=== PATIENT | female | born 2000 | race Caucasian/White ===

== ENCOUNTER 2024-06-06 09:07 | Outpatient (AMB) | payer MEDICAID, SELFPAY ==
--- NOTE | 2024-06-06 09:28 | OBCLNT_ITS ---
Vital Signs 06/06/24 09:35 Height 1.57 m Height Method Stated Weight 65.544 kg Weight Measurement Method Standing Scale BMI 26.4 BP 133/67 H Blood Pressure Source Automatic Cuff Blood Pressure Location Left Upper Arm Position Sitting Respiration 18 Pulse 91 Pulse Source Monitor Temp 97.2 F Temp Source Oral Pulse Oximetry (%) 98 Oxygen Delivery Method Room Air Allergies/Home Meds Allergies & Medications Allergies No Known Allergies Allergy (Verified 06/06/24 09:28) Medication Reconciliation No Known Home Medications 06/06/24 [History Confirmed 06/06/24] Intake Visit Data Collection New Patient or Established: New Patient (never been to [facility]) Reason for Visit:: OBI Seen by Clinical Staff ONLY (RN/MA): No Roadway Technician Required: No Do You Feel Safe at Home: Yes Authorities Contacted: N/A PCP or OBGYN visit in last 3 months: No Hx Now: Yes Are you currently on any form of Control: No Last menstrual period: 04/05/24 Pain Present Currently: No Pain Scale Used: Kevin-Patel/Numerical Pain scale:: 0 Smoking Status Smoking Status: Never smoker Questionnaires Covid-19 Vaccine Questionnaire Has patient been vacinated for Covid-19 Have you been vacinated for Covid-19: Yes PHQ-9 PHQ-2 Over the last 2 weeks, how often have you been bothered by any of the following problems? 1. Little interest or pleasure in doing things: not at all 2. Feeling down, depressed, or hopeless: not at all Total score: 0 PHQ-9 3. Trouble falling or staying asleep, or sleeping too much: Not at all 4. Feeling tired or having little energy: Not at all 5. Poor appetite or overeating: Not at all 6. Feeling bad about yourself - or that you are a failure or have let yourself or your family down: Not at all 7. Trouble concentrating on things, such as reading the newspaper or watching television: Not at all 8. Moving or speaking so slowly that other people could have noticed? - Or the opposite - being so fidgety or restless that you have been moving around a lot more than usual: not at all 9. Thoughts that you would be better off or of hurting yourself in some way: Not at all Total score: 0 If you checked off any problems, how difficult have these problems made it for you to do your work, take care of things at home, or get along with other people?: not difficult at all Source: Developed by Drs. Olvin Webster, Kim Shore, Kartik Lewis and colleagues, with an educational lisa from [employer]. Depression screen completed yes Social History Living Situation History Marital Status: Lives With: Family Housing: Apartment Tobacco History Smoking Status: Never smoker Second Hand Smoke Exposure: No Alcohol History Alcohol Intake: Former Alcohol Intake Frequency: holidays/special occasions only Domestic Abuse History Do You Feel Safe at Home: Yes Past Medical History Past Medical History Have you ever been diagnosed with any of the following: History of Present Illness HPI Narrative 24-year-old 1 para 0 for OBI. Patient and partner are here today for the visit and both are very excited about the positive . Last. April 05, 2024. This gives due date January 11, 2025. Her menses are every month. Every 21 days. The last 7 days. And patient tracks her menses. Is planned . She has no complaints of discomfort at this time due to the . She is healthy denies any existing medical conditions. Denies social habits. Denies surgeries. No SAB complaints are present. OB Initial Visit OB Flowsheet OB Flowsheet Initial Weight: Not Recorded Date -?-?-?-?-?-?-?-?-?-?-?-?- EGA Weight Edema CTX Effacement BP Fundal ht Pres Dilation Effacement Station Visit Note Alb Glu FHR Mov 06/06/24 -?-?-?-?-?-?-?-?-?-?-?-?- 8w 6d 65.544 kg absent absent 133/67 8 24-year-old 1 para 0 for initial OB. Last period for 10/03/2024. Sure dates. EDC 01/11/2025. Patient denies any existing discomforts due to the at this time. No SAB complaints. Both patient and partner are very happy about the results. Patient denies any existing medical problems. No surgeries. No social habits. Plan for today schedule early OB sono to evaluate viability and dating. Order OB panel including drug screen and GC and chlamydia. Discussed SAB precautions. Discussed diet and weight gain. Regular activity is fine. ER precautions and return in 4 weeks OB check Menstrual History Menstrual reliability: definite Flow: heavy Menstrual regularity: regular Monthly: Yes Age at menarche: 11 On control pills at conception: No OB History : 1 Para: 0 Hx # Pregnancies: 0 Hx Total # of Abortions (Spontaneous & Elective): 0 # of Living Children: 0 Infection History & Risk Evaluation History of STDs: none HIV risk evaluation: low risk Hepatitis B risk evaluation: low risk Patient or partner has history of Genital Herpes: No Varicella/chicken pox status: immunized Genetic Screening & History Genetic Screening/Teratology Counseling - Includes patient, baby's father, or anyone in either family with: 1. Patient's age 35 years or older as of estimated date of delivery: No 2. Thalassemia ([place] Citizen, [place] Islander, Mediterranean, or Background); MCV less than 80: No 3. Neural Tube Defect (Meningomyelocele, Spina Bifida, or Anencephaly): No 4. Congenital Heart Defect: No 5. Down Syndrome: No 6. Carson-Sachs (Ashkenazi Tenriism, Cajun, Icelandic Haitian): No 7. Delbert Disease (Ashkenazi Tenriism): No 8. Familial Dysautonomia (Ashkenazi Tenriism): No 9. Sickle Cell Disease or Trait (): No 10. Hemophilia or other blood disorders: No 11. Muscular Dystrophy: No 12. Cystic Fibrosis: No 13. Armando's Chorea: No 14. Mental Retardation/Autism: No 15. Other inherited genetic or chromosomal disorder: No 16. Maternal Metabolic Disorder (EG,TYPE 1 Diabetes, PKU): No 17. Patient or baby's father had a child with defects not listed above: No 18. Recurrent loss or a stillbirth: No 19. Medications (including supplements, vitamins, herbs or otc drugs)/illicit/recreational drugs/alcohol since last menstrual period: No 20. Any other: No Infection History 1. Live with someone with TB or exposed to TB: No 2. Rash or viral illness since last menstrual period: No 3. Hepatitis B,C: No Other (see comments) Source: [employer] Review of Systems Review of Systems Systems Reviewed: All systems reviewed, normal except as documented Exam General Limitations: no limitations General Appearance: alert, in no apparent distress, comfortable, cooperative, healthy appearing, well developed and well groomed Head Head exam: atraumatic, normocephalic and normal inspection Chest Chest inspection: Present normal inspection and symmetric chest wall rise Resp Respiratory exam: Present normal lung sounds bilaterally Card Cardiovascular exam: Present regular rate, normal rhythm and normal heart sounds Abdominal Abdominal exam: Present soft and normal bowel sounds Psych Psychiatric exam: Present normal affect and normal mood Assessment & Plan Diagnosis / Problem List (1) Encounter for supervision of normal first , first trimester: Status: Acute Plan Discussed SAB precautions. Discussed diet and weight gain. Regular exercise. Continue vitamins. Advised patient to start vitamin D. Ordered OB panel and drug screen today. Schedule ultrasound for viability and dating. 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
[2024-06-06 09:35] VITALS: BP 133/67; PULSE 91; RESP 18; TEMP 36.2; O2SAT 98; BMI 26.4
[2024-06-06 10:26] LABS: Bilirubin,Urine Clinitek Negative (Negative); Blood,Urine Clinitek Negative (Negative); Glucose, Urine Clinitek Negative (Negative); Ketones,Urine Clinitek Negative (Negative); Leukocyte Esterase,Urine Clin Negative (Negative); Nitrite,Urine Clinitek Negative (Negative); Protein,Urine Clinitek Negative (Neg - Trace); Specific Gravity,Urine Clin >= 1.030 (1.001-1.030); Urobilinogen,Urine Clinitek 0.2 mg/dL (0.0-1.0)
== END 2024-06-06 10:11 | disposition home or self-care (01) ==
LOC: HODSOBC 09:07
PROVIDERS: Supervising Provider Advanced Practice Midwife; Visit Provider Advanced Practice Midwife
DX: Z34.01 Encounter for supervision of normal first pregnancy, first trimester (principal); Z3A.08 8 weeks gestation of pregnancy
CPT/HCPCS: 76801; 81001; 99203; G0463

== ENCOUNTER 2024-06-24 12:22 | Emergency (ER) | payer SELFPAY ==
[2024-06-24 12:23] VITALS: BMI 26.9
[2024-06-24 12:36] VITALS: BP 144/88; PULSE 100; RESP 16; TEMP 37.4; O2SAT 99; BMI 26.9
--- NOTE | 2024-06-24 12:38 | XR_ITS ---
Examination: Complete OB ultrasound, less than 14 weeks, transabdominal Date and time of exam: June 24, 2024 1340 hours INDICATIONS: Vaginal bleeding beginning 2 days ago Technique: Obstetrical ultrasound images less than 14 weeks performed via transabdominal imaging Findings: Uterus 8.3 cm Intrauterine gestational sac 1.0 cm corresponds to 5 weeks 5 days gestational age No pole, no cardiac activity Right ovary 2.7 cm arterial flow Left ovary 2.7 cm arterial flow IMPRESSION: Empty intrauterine gestational sac corresponding to 5 weeks 5 days gestational age Recommend short-term follow-up transvaginal pelvic sonography to confirm viability
--- NOTE | 2024-06-24 12:38 | PD.EDVAGBL ---
ED OB Contraction Preg RMI/HPI General Chief complaint: Vaginal Bleeding Stated complaint: VAGINAL BLEEDING X2 DAYS; PT 10WKS OB Time Seen by Provider: 06/24/24 12:25 Source: patient Arrival date/time: 06/24/24 12:22 24-year-old female with no known medical history presents to the emergency room with a chief complaint of vaginal bleeding x 2 days. Patient is currently 10 weeks she is a . Patient denies any dysuria Mode of arrival: ambulatory Limitations: no limitations Related Data Home Medications ?Medication ?Instructions ?Recorded ?Confirmed No Known Home Medications 06/06/24 06/06/24 Allergies Allergy/AdvReac Type Severity Reaction Status Date / Time No Known Allergies Allergy Verified 06/24/24 12:25 Review of Systems Review of Systems Systems Reviewed: All systems reviewed, normal except as documented Constitutional Constitutional: Reports system reviewed and no additional complaints, except as documented, Denies fatigue, Denies fever(s), Denies headache(s) and Denies weakness Eyes Eyes: Reports system reviewed and no additional complaints, except as documented, Denies blurry vision and Denies change in vision ENT Ears, Nose, Mouth, and Throat: Reports system reviewed and no additional complaints, except as documented, Denies otalgia, Denies headache(s), Denies nasal congestion, Denies throat swelling and Denies vertigo Cardiovascular Cardiovascular: Reports system reviewed and no additional complaints, except as documented, Denies chest pain, Denies dyspnea and Denies dyspnea on exertion Respiratory Respiratory: Reports system reviewed and no additional complaints, except as documented, Denies chest congestion, Denies cough, Denies dyspnea, Denies dyspnea on exertion and Denies wheezing Gastrointestinal Gastrointestinal: Reports system reviewed and no additional complaints, except as documented, Denies abdominal pain, Denies cramping, Denies nausea and Denies vomiting Genitourinary Genitourinary: Reports system reviewed and no additional complaints, except as documented and Reports abnormal vaginal bleeding Musculoskeletal Musculoskeletal: Reports system reviewed and no additional complaints, except as documented and Denies back pain Integumentary/Breasts Skin/Breast: Reports system reviewed and no additional complaints, except as documented and Denies wounds Neurologic Neurologic: Reports system reviewed and no additional complaints, except as documented, Denies confusion, Denies headache(s), Denies lack of coordination, Denies vertigo and Denies weakness Psychiatric Psychiatric: Reports system reviewed and no additional complaints, except as documented, Denies anxiety, Denies confusion, Denies depression, Denies paranoia, Denies suicidal ideation and Denies tactile hallucinations Endocrine Endocrine: Reports system reviewed and no additional complaints, except as documented and Denies fatigue Hematologic/Lymphatic Hematologic/Lymphatic: Reports system reviewed and no additional complaints, except as documented and Denies lymphadenopathy Allergic/Immunologic Allergic/Immunologic: Reports system reviewed and no additional complaints, except as documented, Denies throat swelling, Denies urticaria and Denies wheezing Past Medical History Social History SMOKING STATUS: Never smoker SECOND HAND EXPOSURE: No ED Exam General Limitations: Present no limitations General appearance: Present alert and in no apparent distress Head Head exam: Present atraumatic Eye Eye exam: Present normal appearance, PERRL and EOMI ENT ENT exam: Present normal exam, normal oropharynx and mucous membranes moist Neck Neck exam: Present normal inspection, full ROM and trachea midline Chest Chest inspection: Present normal inspection and symmetric chest wall rise Respiratory Respiratory exam: Present normal lung sounds bilaterally Cardiovascular Cardiovascular exam: Present regular rate, normal rhythm and normal heart sounds Abdominal Exam Abdominal exam: Present soft and normal bowel sounds Extremities Exam Extremities exam: Present normal inspection and full ROM Back Exam Back exam: Present normal inspection and full ROM Neurological Exam Neurological exam: Present alert, oriented X3 and CN II-XII intact Psychiatric Psychiatric exam: Present normal affect and normal mood Skin Skin exam: Present warm, dry, intact and normal color Course Quality Measures none Orders Category Date Time Status US OB <= 14 weeks fetus Stat Exams 06/24/24 12:38 Completed ABO/RH Type Stat Lab 06/24/24 12:44 Completed Beta HCG,Quantitative Stat Lab 06/24/24 12:44 Completed CBC Stat Lab 06/24/24 12:44 Completed CMP [Comprehensive Metabolic Panel] Stat Lab 06/24/24 12:44 Completed UA [Urinalysis] Stat Lab 06/24/24 13:19 Completed Vital Signs Vital signs: Vital Signs Temperature 99.3 F 06/24/24 12:36 Pulse Rate 100 06/24/24 12:36 Respiratory Rate 16 06/24/24 12:36 Blood Pressure 144/88 H 06/24/24 12:36 Pulse Oximetry (%) 99 06/24/24 12:36 Oxygen Delivery Method Room Air 06/24/24 12:36 O2 saturation within normal limits Vaginal Bleeding MDM Narrative MDM Narrative: 24-year-old female with no known medical history presents to the emergency room with a chief complaint of vaginal bleeding x 2 days. Patient is currently 10 weeks she is a . Patient denies any dysuria Patient is hemodynamically stable she is not tachypneic not tachycardic. Physical examination shows no abdominal tenderness or pain. The patient only complains of vaginal bleeding. Patient states it started off as vaginal spotting yesterday but today has progressed and the bleeding has increased. H&H were within normal limits. hCG levels were 4568. Ultrasound OB shows an empty intrauterine gestational sac at 5 weeks and 5 days. Patient was educated that a short term transvaginal pelvic follow-up is warranted and patient was educated to return in the next 3 days if she is unable to see her [employer]. Patient was discharged and educated to follow-up with primary care provider in the next 24 to 48 hours and return to the emergency room for any evidence of worsening signs or symptoms Patient data External records reviewed:: [facility] previous records Clinical information provided by:: patient Social determinants that could affect healthcare access:: none Patient has the following chronic illnesses:: No chronic illness How is presenting disease/condition affected by chronic disease/condition?: no chronic disease Evaluation data The following diagnostics were reviewed and interpreted by me:: lab results and radiology exam(s) Lab and/or radiology exams considered but not ordered:: Labs and radiology exams considered and ordered Interpretation Summary: Ultrasound OB-Findings: Uterus 8.3 cm Intrauterine gestational sac 1.0 cm corresponds to 5 weeks 5 days gestational age No pole, no cardiac activity Right ovary 2.7 cm arterial flow Left ovary 2.7 cm arterial flow IMPRESSION: Empty intrauterine gestational sac corresponding to 5 weeks 5 days gestational age Recommend short-term follow-up transvaginal pelvic sonography to confirm viability Medications / Prescriptions Medications or Prescriptions considered but not ordered:: No medication given Medication administrations:: No medication given Consultations Consultation(s) initiated? (list below): No Diagnosis Vaginal Bleeding Differential Diagnosis: threatened , dysfunctional uterine bleeding, incomplete , ectopic without intrauterine , vaginal bleeding and other (Subchorionic hemorrhage) Most likely diagnosis given after review of the tests above:: Vaginal bleeding Admission Indicated Admission indicated?: not indicated Admission Request Was there a request for admission?: No Disposition Plan Disposition Plan: Discharge Discharge Attestation Discharge Attestation: The patient and all family members were given an opportunity to ask questions and understood the discharge instructions. Discharge instructions specifically effects, indications for sooner follow up or return to the emergency department, and the expected course of current diagnosis. Patient condition: Stable Discharge Plan Plan Patient Disposition: HOME (Self Care) Discharge Disposition comment: Stable Prescriptions/Referrals Prescriptions/Med Rec: No Action No Known Home Medications Referrals: No Primary/Family,Physician [Primary Care Provider] - In 1 week Problem List Clinical Impression: Vaginal bleeding Patient/Caregiver Discharge Instructions Education Materials: ED Dysfunctional Uterine Bleeding Additional Instructions: Please follow-up with your [employer] DRIVER in the next 24 to 48 hours. At this time there was an empty gestational sac and no heart tones that were seen in the ultrasound. You will need to return in the next 3 days for further imaging and blood work to confirm viability. At this time your hCG levels are at 4468. We will compare these levels at your next visit. For any evidence of worsening signs or symptoms return to the emergency room immediately Print Language: Wolof Stand Alone Forms: Alena Award Info., Work/School Release, Patient Portal Info Letter JUSTICE/GIANNI Supervising Physician JUSTICE/GIANNI Supervising Physician: Dr Estrella
[2024-06-24 13:01] LABS: Basophils # (Auto) 0.1 Thou/mm3 (0.0-0.2); Basophils % (Auto) 1 % (0-2.5); Eosinophils # (Auto) 0.4 Thou/mm3 (0.0-0.5); Eosinophils % (Auto) 4 % (0-10); Hematocrit 40.2 % (36.0-46.0); Hemoglobin 13.3 g/dL (12.0-16.0); Immature Granulocytes % (Auto) 0 % (0-0); Immature Granulocytes Auto 0.04 Thou/mm3 (0.00-0.00); Lymphocytes # (Auto) 1.8 Thou/mm3 (1.0-4.8); Lymphocytes % (Auto) 17 % (10-50); Mean Corpuscular HGB Conc 33.1 g/dl (31.0-37.0); Mean Corpuscular Hemoglobin 29.5 pg (25.0-35.0); Mean Corpuscular Volume 89 fL (80-100); Monocytes # (Auto) 0.6 Thou/mm3 (0.0-0.8); Monocytes % (Auto) 6 % (0-12); Neutrophils # (Auto) 7.6 Thou/mm3 (1.8-7.7); Neutrophils % (Auto) 72 % (37-80); Nucleated Red Blood Cell % 0 /100 WBC (0); Platelet Count 427 Thou/mm3 (140-440); RDW Standard Deviation 49.4 fL (36.4-46.3); Red Blood Count 4.51 Miln/mm3 (4.00-5.20); White Blood Count 10.6 Thou/mm3 (3.6-11.0)
[2024-06-24 13:17] LABS: Alanine Aminotransferase 15 U/L (10-49); Albumin, Serum 4.9 gm/dL (3.5-5.0); Albumin/Globulin Ratio 1.9 (1.2-2.2); Alkaline Phosphatase 46 U/L (46-116); Anion Gap 10 (7-16); Aspartate Amino Transferase 16 U/L (0-34); BUN/Creatinine Ratio 8 Ratio (12-20); Bilirubin,Total 0.4 mg/dL (0.3-1.2); Blood Urea Nitrogen < 5 mg/dL (9-23); Calcium 9.3 mg/dL (8.3-10.6); Calcium (Corrected) 9.3 mg/dL (8.5-10.1); Carbon Dioxide 24.4 mMol/L (20.0-31.0); Chloride 105 mMol/L (98-107); Creatinine (Component) 0.6 mg/dL (0.6-1.3); Estimated Creatinine Clearance 128.4 mL/min (>60); Globulin 2.6 gm/dL (2.3-3.5); Glucose 122 mg/dL (74-106); Osmolality,Calculated 275 (275-295); Potassium 3.7 mMol/L (3.4-5.1); Sodium 139 mMol/L (136-145); Total Protein 7.5 gm/dL (5.7-8.2); eGFR > 60 See Note
[2024-06-24 13:27] LABS: Collection Type, Urine Clean Catch
[2024-06-24 14:00] LABS: Bilirubin,Urine Negative (Negative); Blood,Urine 3+ (Negative); Clarity,Urine Turbid (Clear/Hazy); Color,Urine Yellow (Lt Yel-Yel); Glucose, Urine Negative (Negative); Ketones,Urine 3+ (Negative); Leukocyte Esterase,Urine Negative (Negative); Nitrite,Urine Negative (Negative); Protein,Urine 1+ (Neg - Trace); RBC,Urine 1799 /hpf (0-3); Specific Gravity,Urine 1.018 (1.001-1.035); Squamous Epithelial Cell,Urine 7 /hpf (0-5); Urobilinogen,Urine Negative mg/dL (0.0-1.0); WBC,Urine 7 /hpf (0-5)
[2024-06-24 14:06] LABS: Beta HCG,Quantitative 4468 mIU/mL (<5.0)
== END 2024-06-24 15:32 | disposition home or self-care (01) ==
PROVIDERS: Nurse Practitioner Family; Emergency Provider Emergency Medicine
DX: O20.9 Hemorrhage in early pregnancy, unspecified (principal); Z3A.01 Less than 8 weeks gestation of pregnancy
CPT/HCPCS: 36415; 76801; 80053; 81001; 84702; 85025; 86900; 86901; 99284

== ENCOUNTER 2024-06-26 09:41 | Outpatient (AMB) | payer SELFPAY ==
[2024-06-26 09:55] VITALS: BP 152/75; PULSE 105; RESP 18; TEMP 36.2; O2SAT 97; BMI 27.0
--- NOTE | 2024-06-26 09:55 | AMB.GYNCLNOT ---
Vital Signs 06/26/24 09:55 Height 1.57 m Height Method Stated Weight 66.678 kg Weight Measurement Method Standing Scale BMI 27.0 BP 152/75 H Blood Pressure Source Automatic Cuff Blood Pressure Location Left Upper Arm Position Sitting Respiration 18 Pulse 105 H Pulse Source Monitor Temp 97.2 F Temp Source Oral Pulse Oximetry (%) 97 Oxygen Delivery Method Room Air Allergies/Home Meds Allergies & Medications Allergies No Known Allergies Allergy (Verified 06/26/24 09:56) Medication Reconciliation No Known Home Medications 06/06/24 [History Confirmed 06/26/24] Intake Visit Data Collection New Patient or Established: Established Patient (seen at [facility] within 3 years) Reason for Visit:: ER FOLLOW UP , PATIENT IS STILL BLEEDING Dust Mixer Required: No Do You Feel Safe at Home: Yes Authorities Contacted: N/A PCP or OBGYN visit in last 3 months: Yes Date of Last PCP or OBGYN visit: 06/24/24 Hx Now: Yes Are you currently on any form of Control: No Pain Present Currently: No Pain Scale Used: Kevin-Patel/Numerical Pain scale:: 0 Smoking Status Smoking Status: Never smoker 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 1. Little interest or pleasure in doing things: not at all 2. Feeling down, depressed, or hopeless: not at all Total score: 0 PHQ-9 3. Trouble falling or staying asleep, or sleeping too much: Not at all 4. Feeling tired or having little energy: Not at all 5. Poor appetite or overeating: Not at all 6. Feeling bad about yourself - or that you are a failure or have let yourself or your family down: Not at all 7. Trouble concentrating on things, such as reading the newspaper or watching television: Not at all 8. Moving or speaking so slowly that other people could have noticed? - Or the opposite - being so fidgety or restless that you have been moving around a lot more than usual: not at all 9. Thoughts that you would be better off or of hurting yourself in some way: Not at all Total score: 0 If you checked off any problems, how difficult have these problems made it for you to do your work, take care of things at home, or get along with other people?: not difficult at all Source: Developed by Drs. Olvin Webster, Kim Shore, Kartik Lewis and colleagues, with an educational lisa from [employer]. Depression screen completed yes Social History Living Situation History Lives With: Family Housing: Apartment Tobacco History Smoking Status: Never smoker Second Hand Smoke Exposure: No Alcohol History Alcohol Intake: Former Alcohol Intake Frequency: holidays/special occasions only Domestic Abuse History Do You Feel Safe at Home: Yes Office Procedures OB Clinic LOC & Office Proc's Nursing/Assessment Patient Status: Established Patient OB Clinic Nursing Assessment: Medication Reconciliation, Update PMH in EMR and Vital Signs OB Clinic Coordination of Care: Consent,records obtained, informed consent, Education Simp Pt/Fam and Staff clarify orders Special Needs: Heart tones Established Patient Charge Established Patient Point Assignment: 90 Established Patient Point Charge: EP Level 3 (80-115) Assessment & Plan Diagnosis / Problem List (1) Encounter for supervision of normal first , first trimester: Status: Acute (2) Vaginal bleeding: Status: Acute Plan discuss sab precaution, get ob panel today with hcg. repeat hcg in 1 week. f/u OB sono for viability in 2 week. extend off work x 1 week, rest. rtc 2 week labs results. discuss ER precaution
--- NOTE | 2024-06-26 11:02 | OBCLNT_ITS ---
Vital Signs 06/26/24 09:55 Height 1.57 m Height Method Stated Weight 66.678 kg Weight Measurement Method Standing Scale BMI 27.0 BP 152/75 H Blood Pressure Source Automatic Cuff Blood Pressure Location Left Upper Arm Position Sitting Respiration 18 Pulse 105 H Pulse Source Monitor Temp 97.2 F Temp Source Oral Pulse Oximetry (%) 97 Oxygen Delivery Method Room Air Allergies/Home Meds Allergies & Medications Allergies No Known Allergies Allergy (Verified 06/26/24 11:08) Medication Reconciliation No Known Home Medications 06/06/24 [History Confirmed 06/26/24] Intake Visit Data Collection New Patient or Established: Established Patient (seen at [facility] within 3 years) Reason for Visit:: er follow up Security Installation Technician Required: No Do You Feel Safe at Home: Yes Authorities Contacted: N/A PCP or OBGYN visit in last 3 months: Yes Date of Last PCP or OBGYN visit: 06/24/24 Hx Now: Yes Are you currently on any form of Control: No Pain Present Currently: No Pain Scale Used: Kevin-Patel/Numerical Pain scale:: 0 Smoking Status Smoking Status: Never smoker Questionnaires PHQ-9 PHQ-2 Over the last 2 weeks, how often have you been bothered by any of the following problems? 1. Little interest or pleasure in doing things: not at all 2. Feeling down, depressed, or hopeless: not at all Total score: 0 PHQ-9 3. Trouble falling or staying asleep, or sleeping too much: Not at all 4. Feeling tired or having little energy: Not at all 5. Poor appetite or overeating: Not at all 6. Feeling bad about yourself - or that you are a failure or have let yourself or your family down: Not at all 7. Trouble concentrating on things, such as reading the newspaper or watching television: Not at all 8. Moving or speaking so slowly that other people could have noticed? - Or the opposite - being so fidgety or restless that you have been moving around a lot more than usual: not at all 9. Thoughts that you would be better off or of hurting yourself in some way: Not at all Total score: 0 If you checked off any problems, how difficult have these problems made it for you to do your work, take care of things at home, or get along with other people?: not difficult at all Source: Developed by Drs. Olvin Webster, Kim Shore, Kartik Lewis and colleagues, with an educational lisa from [employer]. Depression screen completed yes Social History Living Situation History Lives With: Family Housing: Apartment Tobacco History Smoking Status: Never smoker Second Hand Smoke Exposure: No Alcohol History Alcohol Intake: Former Alcohol Intake Frequency: holidays/special occasions only Domestic Abuse History Do You Feel Safe at Home: Yes Care OB Visit Log OB Flowsheet Initial Weight: Not Recorded Date -?-?-?-?-?-?-?-?-?-?-?-?- EGA Weight BP Alb Glu CTX Pres Fundal ht FHR Mov Dilation Station Effacement Hx Notes Visit Note 06/06/24 -?--?-?-?-?-?-?-?-?-?-?-?- 3w 2d 65.544 kg 133/67 absent 8 24-year-old 1 para 0 for initial OB. Last period for 10/03/2024. Sure dates. EDC 01/11/2025. Patient denies any existing discomforts due to the at this time. No SAB complaints. Both patient and partner are very happy about the results. Patient denies any existing medical problems. No surgeries. No social habits. Plan for today schedule early OB sono to evaluate viability and dating. Order OB panel including drug screen and GC and chlamydia. Discussed SAB precautions. Discussed diet and weight gain. Regular activity is fine. ER precautions and return in 4 weeks OB check 06/26/24 -?-?-?-?-?-?-?-?-?-?-?-?- 6w 1d 66.678 kg 152/75 absent unknown 6 ER f/u, [facility] visit 06/24/24 for vag bleeding. reports less bleeding today. no c/o n/v. patient did not do OB panel. OB sono 06/18: IUP 5 wk, +FHT @155. 06/24 at [facility]: IUP 5w5, No FHT,no pole. SAC seen, HC OB panel tod ay with HCG, f/u OB sono for viability in 2 week, repeat HCG in 1 week. sab precaution and ER precaution, RTC 07/09 for resul ts [facility] Calculator Estimated Delivery Date Method Current WG Current Estimate 02/18/25 Ultrasound #1 6w 1d Other Estimates 01/10/25 LMP (Certain) 11w 5d Office Procedures OB Clinic LOC & Office Proc's Nursing/Assessment Patient Status: Established Patient OB Clinic Nursing Assessment: Medication Reconciliation, Update PMH in EMR and Vital Signs OB Clinic Coordination of Care: Consent,records obtained, informed consent, Education Simp Pt/Fam and Staff clarify orders Special Needs: Heart tones Established Patient Charge Established Patient Point Assignment: 90 Established Patient Point Charge: EP Level 3 (80-115) Assessment & Plan Diagnosis / Problem List (1) Encounter for supervision of normal first , first trimester: Status: Acute Plan hcg and OB panel today. repeat hcg 1 week, f/u ob sono/trans vag in 2 week. discuss sab and ER precaution, off work until 07/04. f/u 2 week results Additional Plan Follow Up: 2 Weeks (f/u threatened SAB)
== END 2024-06-26 10:34 | disposition home or self-care (01) ==
LOC: HODSOBC 09:41
PROVIDERS: Supervising Provider Obstetrics & Gynecology; Visit Provider Advanced Practice Midwife
DX: O09.891 Supervision of other high risk pregnancies, first trimester (principal); Z3A.01 Less than 8 weeks gestation of pregnancy; O20.9 Hemorrhage in early pregnancy, unspecified
CPT/HCPCS: 99213; G0463

== ENCOUNTER 2024-06-27 04:30 | Emergency (ER) | payer SELFPAY ==
[2024-06-27 04:31] VITALS: BMI 26.9
[2024-06-27 04:53] VITALS: BP 125/83; PULSE 102; RESP 16; TEMP 37.2; O2SAT 97
--- NOTE | 2024-06-27 05:43 | XR_ITS ---
Examination: OB Transvaginal ultrasound of the pelvis, complete Technique: Transvaginal sonographic images pelvis performed using hebert scale imaging Exam date and time: June 27, 2024 0616 hours INDICATIONS: Vaginal bleeding and cramping beginning today FINDINGS: Uterus 7.7 cm with thickened complex masslike area in the mid endometrium measuring 2.17 cm in thickness No recognizable intrauterine pole, no cardiac activity Right ovary 3.2 cm arterial flow Left ovary 2.5 cm arterial flow IMPRESSION: Spontaneous in progress with retained products of conception Recommend continued short term follow-up transvaginal pelvic sonography.
--- NOTE | 2024-06-27 05:44 | PD.EDRME ---
Rapid Medical Screening Exam RME Arrival date/time: 06/27/24 04:30 24F at approximately 5-6 weeks and with no significant PMH presents to ED with worsening vaginal bleeding. Patient was here several days ago for this. Patient is A+ blood type. While waiting in [facility], patient passed POC, which was verified by this provider. Patient still wants an US. Chief Complaint: Vaginal Bleeding Vital signs: Vital Signs Temperature 98.9 F 06/27/24 04:53 Pulse Rate 102 H 06/27/24 04:53 Respiratory Rate 16 06/27/24 04:53 Blood Pressure 125/83 06/27/24 04:53 Pulse Oximetry (%) 97 06/27/24 04:53 Oxygen Delivery Method Room Air 06/27/24 04:53
[2024-06-27 07:58] LABS: Basophils # (Auto) 0.1 Thou/mm3 (0.0-0.2); Basophils % (Auto) 1 % (0-2.5); Eosinophils # (Auto) 0.3 Thou/mm3 (0.0-0.5); Eosinophils % (Auto) 2 % (0-10); Hematocrit 39.4 % (36.0-46.0); Hemoglobin 13.1 g/dL (12.0-16.0); Immature Granulocytes % (Auto) 0 % (0-0); Immature Granulocytes Auto 0.05 Thou/mm3 (0.00-0.00); Lymphocytes # (Auto) 1.7 Thou/mm3 (1.0-4.8); Lymphocytes % (Auto) 13 % (10-50); Mean Corpuscular HGB Conc 33.2 g/dl (31.0-37.0); Mean Corpuscular Hemoglobin 29.4 pg (25.0-35.0); Mean Corpuscular Volume 89 fL (80-100); Monocytes # (Auto) 0.8 Thou/mm3 (0.0-0.8); Monocytes % (Auto) 6 % (0-12); Neutrophils # (Auto) 10.2 Thou/mm3 (1.8-7.7); Neutrophils % (Auto) 78 % (37-80); Nucleated Red Blood Cell % 0 /100 WBC (0); Platelet Count 437 Thou/mm3 (140-440); Red Blood Count 4.45 Miln/mm3 (4.00-5.20); White Blood Count 13.1 Thou/mm3 (3.6-11.0)
[2024-06-27 08:16] VITALS: BP 131/67; PULSE 95; RESP 16; TEMP 36.9; O2SAT 99
[2024-06-27 08:48] LABS: Alanine Aminotransferase 15 U/L (10-49); Albumin, Serum 4.7 gm/dL (3.5-5.0); Albumin/Globulin Ratio 1.9 (1.2-2.2); Alkaline Phosphatase 43 U/L (46-116); Anion Gap 12 (7-16); Aspartate Amino Transferase 16 U/L (0-34); BUN/Creatinine Ratio 10 Ratio (12-20); Beta HCG,Quantitative 2500 mIU/mL (<5.0); Bilirubin,Total 0.3 mg/dL (0.3-1.2); Blood Urea Nitrogen 6 mg/dL (9-23); Calcium 9.2 mg/dL (8.3-10.6); Calcium (Corrected) 9.2 mg/dL (8.5-10.1); Carbon Dioxide 25.5 mMol/L (20.0-31.0); Chloride 103 mMol/L (98-107); Creatinine (Component) 0.6 mg/dL (0.6-1.3); Estimated Creatinine Clearance 128.4 mL/min (>60); Globulin 2.5 gm/dL (2.3-3.5); Glucose 102 mg/dL (74-106); Osmolality,Calculated 277 (275-295); Potassium 3.9 mMol/L (3.4-5.1); Sodium 140 mMol/L (136-145); Total Protein 7.2 gm/dL (5.7-8.2); eGFR > 60 See Note
--- NOTE | 2024-06-27 09:12 | EDNOTE_ITS ---
ED Abdominal Pain RME/HPI General Chief Complaint: Vaginal Bleeding Stated complaint: LOWER ABDOMINAL PAIN, VAGINAL BLEEDING Arrival date/time: 06/27/24 04:30 Limitations: no limitations RME / HPI RME / HPI narrative: 06/27/24 04:30 24F at approximately 5-6 weeks and with no significant PMH presents to ED with worsening vaginal bleeding. Patient was here several days ago for this. Patient is A+ blood type. While waiting in [facility], patient passed POC, which was verified by this provider. Patient still wants an US. DR. LOPEZ MAIN ED EVALUATION: 24 year old female who is approximately 5 weeks gestational age, , presents to the ED for evaluation of abdominal pain beginning at 04:00 AM today. Described pain as cramping and colicky in sensation, occurring every ~ 5 minutes, rating as moderate in severity. Accompanied by vaginal bleeding beginning yesterday. States while out in the ER waiting room, she passed a blood clot and was confirmed by previous physician to be POC. No other associated symptoms or complaints reported. Denies fevers, chills, sweats, vomiting, diarrhea, or urinary symptoms. Related Data Home Medications ?Medication ?Instructions ?Recorded ?Confirmed No Known Home Medications 06/06/24 0503/02 Allergies Allergy/AdvReac Type Severity Reaction Status Date / Time No Known Allergies Allergy Verified 06/26/24 11:08 Review of Systems Review of Systems Narrative Review of Systems: GEN: No fever, no chills EYES: No discharge, no visual changes, no pain HEENT: No ear pain, no congestion, no sore throat PULM: No shortness of breath, no cough, no congestion CV: No chest pain, no palpitations GI: No nausea, no vomiting, no diarrhea, +pain, no constipation : +vaginal bleeding. No frequency, no urgency, no dysuria MUSC/SKEL: No joint pain, no back pain SKIN: No rash NEURO: No weakness, no headache Past Medical History Social History SMOKING STATUS: Never smoker SECOND HAND EXPOSURE: No ED Exam General Limitations: Present no limitations General appearance: Present alert and in no apparent distress Head Head exam: Present atraumatic Eye Eye exam: Present normal appearance, PERRL and EOMI ENT ENT exam: Present normal exam, normal oropharynx and mucous membranes moist Neck Neck exam: Present normal inspection, full ROM and trachea midline Chest Chest inspection: Present normal inspection and symmetric chest wall rise Respiratory Respiratory exam: Present normal lung sounds bilaterally Cardiovascular Cardiovascular exam: Present regular rate, normal rhythm and normal heart sounds Abdominal Exam Abdominal exam: Present soft and normal bowel sounds Extremities Exam Extremities exam: Present normal inspection and full ROM Back Exam Back exam: Present normal inspection and full ROM Neurological Exam Neurological exam: Present alert, oriented X3 and CN II-XII intact Psychiatric Psychiatric exam: Present normal affect and normal mood Skin Skin exam: Present warm, dry, intact and normal color Course Quality Measures none Orders Category Date Time Status US OB transvaginal Stat Exams 06/27/24 05:43 Completed Beta HCG,Quantitative Stat Lab 06/27/24 07:36 Completed CBC Stat Lab 06/27/24 07:36 Completed CMP [Comprehensive Metabolic Panel] Stat Lab 06/27/24 07:36 Completed Vital Signs Vital signs: Vital Signs Temperature 98.9 F 06/27/24 04:53 Pulse Rate 102 H 06/27/24 04:53 Respiratory Rate 16 06/27/24 04:53 Blood Pressure 125/83 06/27/24 04:53 Pulse Oximetry (%) 97 06/27/24 04:53 Oxygen Delivery Method Room Air 06/27/24 04:53 Pulse ox is 97% on room air which is adequate. Abdominal Pain MDM MDM Narrative MDM Narrative:: ISabina am scribing for and in the presence of Dr. Lopez. 0928: I spoke with patient and mother at bedside. We reviewed all the results, analysis, and treatment plans. Patient is amenable to discharge. Strict return precautions were outlined. Patient was discharged in stable condition. Patient data External records reviewed:: [facility] previous records (I reviewed ED Visit on 06/24/2024 for vaginal bleeding ) Clinical information provided by:: patient Social determinants that could affect healthcare access:: none Patient has the following chronic illnesses:: None reported How is presenting disease/condition affected by chronic disease/condition?: no chronic disease Evaluation data The following diagnostics were reviewed and interpreted by me:: lab results and radiology exam(s) Lab and/or radiology exams considered but not ordered:: None Interpretation Summary: Ordering Physician: Arash Malik PA-C Date of Service: 06/27/24 Procedure(s): US OB transvaginal Accession Number(s): [id number] cc: Pratik Rodriguez MD; Arash Malik PA-C~ Examination: OB Transvaginal ultrasound of the pelvis, complete Technique: Transvaginal sonographic images pelvis performed using hebert scale imaging Exam date and time: June 27, 2024 0616 hours INDICATIONS: Vaginal bleeding and cramping beginning today FINDINGS: Uterus 7.7 cm with thickened complex masslike area in the mid endometrium measuring 2.17 cm in thickness No recognizable intrauterine pole, no cardiac activity Right ovary 3.2 cm arterial flow Left ovary 2.5 cm arterial flow IMPRESSION: Spontaneous in progress with retained products of conception Recommend continued short term follow-up transvaginal pelvic sonography. Dictated By:Pratik Rodriguez MD Signed By:<Electronically signed by Pratik Rodriguez MD in OV>06/27/24 0702 Medications / Prescriptions Medications or Prescriptions considered but not ordered:: None Medication administrations:: None Consultations Consultation(s) initiated? (list below): No Diagnosis Differential diagnosis abdominal pain: abdominal pain and other (incomplete , threatened ) Most likely diagnosis given after review of the tests above:: Incomplete Admission Indicated Admission indicated?: not indicated Admission Request Was there a request for admission?: No Disposition Plan Disposition Plan: Discharge Discharge Attestation Discharge Attestation: The patient and all family members were given an opportunity to ask questions and understood the discharge instructions. Discharge instructions specifically effects, indications for sooner follow up or return to the emergency department, and the expected course of current diagnosis. Patient condition: Stable Discharge Plan Plan Patient Disposition: HOME (Self Care) Prescriptions/Referrals Prescriptions/Med Rec: No Action No Known Home Medications Referrals: Cecilia Montes De Oca CNM [Primary Care Provider] - In 1 week Problem List Clinical Impression: Incomplete Patient/Caregiver Discharge Instructions Education Materials: ED Miscarriage, Incomplete Additional Instructions: Follow up with your doctor within 3 days for reassessment. You can return to the emergency department sooner if symptoms worsen or if you notice any new, concerning issues. For pain, take both 1-2 Tylenol 500mg tablets every 6 hours AND 2 Advil Gel 200mg capsules every 6 hours. Print Language: German Stand Alone Forms: [facility] Award Info., Patient Portal Info Letter
[2024-06-27 09:54] VITALS: BP 105/78; PULSE 71; RESP 16; TEMP 36.6; O2SAT 100
== END 2024-06-27 09:56 | disposition home or self-care (01) ==
PROVIDERS: Physician Assistant; Emergency Provider Family Medicine; PCP Advanced Practice Midwife
DX: O03.4 Incomplete spontaneous abortion without complication (principal)
CPT/HCPCS: 36415; 76817; 80053; 84702; 85025; 99284

== ENCOUNTER 2024-07-04 09:54 | Outpatient (AMB) | payer MEDICAID, SELFPAY ==
--- NOTE | 2024-07-04 10:07 | GYNCLNT_ITS ---
Vital Signs 07/04/24 10:08 Height 1.57 m Height Method Stated Weight 66.791 kg Weight Measurement Method Standing Scale BMI 26.9 BP 130/83 Blood Pressure Source Automatic Cuff Blood Pressure Location Right Upper Arm Position Sitting Respiration 18 Pulse 93 Pulse Source Monitor Temp 98.7 F Temp Source Oral Pulse Oximetry (%) 95 Oxygen Delivery Method Room Air Allergies/Home Meds Allergies & Medications Allergies No Known Allergies Allergy (Verified 07/04/24 10:10) Medication Reconciliation No Known Home Medications 06/06/24 [History Confirmed 07/04/24] Intake Visit Data Collection New Patient or Established: Established Patient (seen at [facility] within 3 years) Reason for Visit:: EMERGENCY ROOM FOLLOW UP Seen by Clinical Staff ONLY (RN/MA): No Electric Pile Driver Operator Required: No Do You Feel Safe at Home: Yes Authorities Contacted: N/A PCP or OBGYN visit in last 3 months: Yes Hx Now: No Are you currently on any form of Control: No Pain Present Currently: No Pain Scale Used: Kevin-Patel/Numerical Pain scale:: 0 Smoking Status Smoking Status: Never smoker Questionnaires Covid-19 Vaccine Questionnaire Has patient been vacinated for Covid-19 Have you been vacinated for Covid-19: Yes PHQ-9 PHQ-2 Over the last 2 weeks, how often have you been bothered by any of the following problems? 1. Little interest or pleasure in doing things: not at all 2. Feeling down, depressed, or hopeless: not at all Total score: 0 PHQ-9 3. Trouble falling or staying asleep, or sleeping too much: Not at all 4. Feeling tired or having little energy: Not at all 5. Poor appetite or overeating: Not at all 6. Feeling bad about yourself - or that you are a failure or have let yourself or your family down: Not at all 7. Trouble concentrating on things, such as reading the newspaper or watching television: Not at all 8. Moving or speaking so slowly that other people could have noticed? - Or the opposite - being so fidgety or restless that you have been moving around a lot more than usual: not at all 9. Thoughts that you would be better off or of hurting yourself in some way: Not at all Total score: 0 Source: Developed by Drs. Olvin Webster, Kim Shore, Kartik Lewis and colleagues, with an educational lisa from [employer]. Depression screen completed yes Social History Living Situation History Lives With: Family Housing: Apartment Tobacco History Smoking Status: Never smoker Second Hand Smoke Exposure: No Alcohol History Alcohol Intake: Former Alcohol Intake Frequency: holidays/special occasions only Domestic Abuse History Do You Feel Safe at Home: Yes History of Present Illness HPI Narrative The patient is a 24-year-old female presenting for follow-up after two recent emergency room visits for bleeding and early concerns. She reports that her bleeding has now mostly stopped, with only light bleeding noted when wiping. This is consistent with the expected progression of a spontaneous , which was diagnosed during her ER visits. The ultrasound on 06/24/2024 showed an empty intrauterine gestational sac corresponding to 5 weeks and 5 days gestation without pole. A subsequent transvaginal ultrasound on 06/27/2024 was consistent with a spontaneous in progress, with products of conception in the lower uterine segment. The patient does not report any specific concerns or questions about aftercare following the miscarriage. She is interested in understanding when it would be safe to attempt again and whether any additional testing is needed to determine the cause of the miscarriage or to assess her uterine condition. The patient's obstetric history is A1 L0, with a recent spontaneous in progress, initially diagnosed at approximately 5 weeks, 5 days gestation. She is currently taking vitamins and has been advised to finish what she has. The patient is sexually active. Diagnostic Test Results and Labs: - Serum hCG (06/24/2024): 4468 - Serum hCG (06/27/2024): 2500 - Ultrasound (06/24/2024): Empty intrauterine gestational sac corresponding to 5 weeks, 5 days without pole - Transvaginal ultrasound (06/27/2024): Consistent with spontaneous in progress with products of conception in the lower uterine segment Exam General General Appearance: alert, in no apparent distress and healthy appearing Head Head exam: atraumatic Neck Neck exam: Present normal inspection and trachea midline Chest Chest inspection: Present normal inspection and symmetric chest wall rise External exam: Present normal external exam; Absent tenderness Neuro Neurological exam: Present oriented X3 Psych Psychiatric exam: Present normal affect and normal mood Office Procedures OB Clinic LOC & Office Proc's Nursing/Assessment Patient Status: Established Patient OB Clinic Nursing Assessment: Medication Reconciliation, Update PMH in EMR and Vital Signs OB Clinic Coordination of Care: Complex Care and Chronic Disease 1-5, Consent,records obtained, informed consent, Education Simp Pt/Fam, Lab and Imaging orders, Results/Orders obtained and Staff clarify orders Established Patient Charge Established Patient Point Assignment: 105 Established Patient Point Charge: EP Level 3 (80-115) Assessment & Plan Diagnosis / Problem List (1) Abnormal uterine and vaginal bleeding, unspecified: Status: Acute (2) Incomplete : Status: Acute Plan Spontaneous : - Two recent ER visits (06/24/2024 and 06/27/2024) for bleeding and early . - Serum hCG levels decreased from 4468 on 06/24/2024 to 2500 on 06/27/2024. - Ultrasound on 06/24 showed empty intrauterine gestational sac (5 weeks, 5 days) without pole. - Transvaginal ultrasound on 06/27 consistent with spontaneous in progress. - Currently reports decreased bleeding, only noticeable when wiping. - Assessment consistent with uncomplicated spontaneous . Plan: - Perform follow-up ultrasound to confirm complete evacuation of products of c onception - Order repeat serum hCG to ensure appropriate decline - Schedule 2-week follow-up appointment to review test results - Recommend use of condoms if sexually active to prevent before uterine healing - Advise patient can resume trying for after next menstrual cycle if desired - Inform patient that no specific aftercare is required beyond monitoring for increased bleeding or signs of infection - Explain that testing for causes of miscarriage is not indicated after a single occurrence
[2024-07-04 10:08] VITALS: BP 130/83; PULSE 93; RESP 18; TEMP 37.1; O2SAT 95; BMI 26.9
== END 2024-07-04 10:41 | disposition home or self-care (01) ==
LOC: HODSOBC 09:54
PROVIDERS: Supervising Provider Obstetrics & Gynecology; Visit Provider Obstetrics & Gynecology
DX: O03.4 Incomplete spontaneous abortion without complication (principal)
CPT/HCPCS: 99213; G0463

== ENCOUNTER → 2024-07-04 | Outpatient (CLI) | payer MEDICAID, SELFPAY ==
--- NOTE | 2024-07-04 11:27 | XR_ITS ---
Examination: Pelvic ultrasound, transabdominal, complete Technique: Transabdominal ultrasound of the pelvis performed using grayscale imaging Date and time of exam: July 04, 2024 1135 hours INDICATIONS: Status post miscarriage one week ago FINDINGS: Uterus 6.0 cm endometrial stripe 0.4 cm Right ovary 2.1 cm arterial flow Left ovary obscured by bowel gas IMPRESSION: No uterine mass or retained products of conception
== END | disposition home or self-care (01) ==
PROVIDERS: Referring Provider Obstetrics & Gynecology; Visit Provider Obstetrics & Gynecology
DX: O03.4 Incomplete spontaneous abortion without complication (principal); O36.80X0 Pregnancy with inconclusive fetal viability, not applicable or unspecified; N93.9 Abnormal uterine and vaginal bleeding, unspecified
CPT/HCPCS: 76856

== ENCOUNTER 2024-07-19 09:04 | Outpatient (AMB) | payer MEDICAID, SELFPAY ==
[2024-07-19 09:23] VITALS: BP 124/71; PULSE 71; RESP 18; TEMP 36.2; O2SAT 98; BMI 26.9
--- NOTE | 2024-07-19 09:23 | GYNCLNT_ITS ---
Vital Signs 07/19/24 09:23 Height 1.57 m Height Method Stated Weight 66.224 kg Weight Measurement Method Standing Scale BMI 26.9 BP 124/71 Blood Pressure Source Automatic Cuff Blood Pressure Location Left Upper Arm Position Sitting Respiration 18 Pulse 71 Pulse Source Monitor Temp 97.2 F Temp Source Oral Pulse Oximetry (%) 98 Oxygen Delivery Method Room Air Allergies/Home Meds Allergies & Medications Allergies No Known Allergies Allergy (Verified 07/19/24 09:24) Intake Visit Data Collection New Patient or Established: Established Patient (seen at [facility] within 3 years) Reason for Visit:: FOLLOW UP Commissioned Sales Associate Required: Yes Commissioned Sales Associate's name/title: RACHEL SANCHEZ MA Do You Feel Safe at Home: Yes Authorities Contacted: N/A PCP or OBGYN visit in last 3 months: Yes Date of Last PCP or OBGYN visit: 07/04/24 Hx Now: No Are you currently on any form of Control: No Pain Present Currently: No Pain Scale Used: Kevin-Patel/Numerical Pain scale:: 0 Smoking Status Smoking Status: Never smoker 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 1. Little interest or pleasure in doing things: not at all 2. Feeling down, depressed, or hopeless: not at all Total score: 0 PHQ-9 3. Trouble falling or staying asleep, or sleeping too much: Not at all 4. Feeling tired or having little energy: Not at all 5. Poor appetite or overeating: Not at all 6. Feeling bad about yourself - or that you are a failure or have let yourself or your family down: Not at all 7. Trouble concentrating on things, such as reading the newspaper or watching television: Not at all 8. Moving or speaking so slowly that other people could have noticed? - Or the opposite - being so fidgety or restless that you have been moving around a lot more than usual: not at all 9. Thoughts that you would be better off or of hurting yourself in some way: Not at all Total score: 0 If you checked off any problems, how difficult have these problems made it for you to do your work, take care of things at home, or get along with other people?: not difficult at all Source: Developed by Drs. Olvin Webster, Kim Shore, Kartik Lewis and colleagues, with an educational lisa from [employer]. Depression screen completed yes Social History Living Situation History Lives With: Family Housing: Apartment Tobacco History Smoking Status: Never smoker Second Hand Smoke Exposure: No Alcohol History Alcohol Intake: Former Alcohol Intake Frequency: holidays/special occasions only Domestic Abuse History Do You Feel Safe at Home: Yes History of Present Illness HPI Narrative Patient presents for follow-up after a recent procedure, experiencing ongoing uterine bleeding. She reports that the bleeding is currently active, which she understands as her body flushing everything out. She does not report any specific concerns or complications related to this bleeding. The patient had a recent ultrasound on July 04, 2024, which showed no evidence of uterine mass or retained products of conception. Despite the ongoing bleeding, the patient appears to be tolerating it well and understands it as part of the post-procedure process. She has not reported any associated symptoms or impact on her daily functioning. Patient reports positive for uterine bleeding with blood and clots. Exam General General Appearance: alert, in no apparent distress and healthy appearing Head Head exam: atraumatic Neck Neck exam: Present normal inspection and trachea midline Chest Chest inspection: Present normal inspection and symmetric chest wall rise External exam: Present normal external exam; Absent tenderness Neuro Neurological exam: Present oriented X3 Psych Psychiatric exam: Present normal affect and normal mood Office Procedures OB Clinic LOC & Office Proc's Nursing/Assessment Patient Status: Established Patient OB Clinic Nursing Assessment: Medication Reconciliation, Update PMH in EMR and Vital Signs OB Clinic Coordination of Care: Education Complex Pt/Fam, Consent,records obtained, informed consent, Lab and Imaging orders and Staff clarify orders Established Patient Charge Established Patient Point Assignment: 80 Established Patient Point Charge: EP Level 3 (80-115) Assessment & Plan Diagnosis / Problem List (1) Abnormal uterine and vaginal bleeding, unspecified: Status: Acute Plan Diagnostic Test Results and Labs: - HCG (Date N/A): 2 (Reference range: <5 considered negative) - Ultrasound (07/04/2024): - Uterus measuring 6 centimeters - Endometrial stripe 0.4 cm - Right ovary 2.1 centimeters - Left ovary not seen - No evidence of uterine mass or retained products of conception Post-miscarriage uterine bleeding: - Ongoing uterine bleeding following recent miscarriage - Lab results: beta-hCG level of 2 (negative) - Transvaginal ultrasound (July 04, 2024) findings: * Uterus measuring 6 cm * Endometrial stripe 0.4 cm * Right ovary 2.1 cm * Left ovary not visualized * No evidence of uterine mass or retained products of conception - Current bleeding likely due to normal post-miscarriage process Plan: - Prescribe tranexamic acid for 5 days - Send prescription to [facility] - Patient education: * Current bleeding is expected * Next regular menstrual period expected one month after current bleeding ends - No scheduled follow-up - Patient advised to return if any problems arise
== END 2024-07-19 09:58 | disposition home or self-care (01) ==
LOC: HODSOBC 09:04
PROVIDERS: PCP Obstetrics & Gynecology; Referring Provider Obstetrics & Gynecology; Supervising Provider Obstetrics & Gynecology; Visit Provider Obstetrics & Gynecology
DX: O03.6 Delayed or excessive hemorrhage following complete or unspecified spontaneous abortion (principal)
CPT/HCPCS: 99213; G0463